=== PATIENT | female | born 1955 | race Caucasian/White ===

== ENCOUNTER 2020-07-08 06:49 | Emergency (ER) | payer BC ==
[~2020-07-08] VITALS: Ht 170.2 cm; Wt 89.4 kg
[~2020-07-08 06:49] MED LIST: ADDERALL 10 MG10 MG PO; BACTRIM DS TAB1 EACH PO; CELEXA 10 MG TA10 M1 PO; ESTRADIOL; GLIPIZIDE 10 MG10 MG PO; GLUCOPHAGE1000 MG PO; IBUPROFEN 800800 M1 PO; MACROBID 100 M100 M1; NEURONTIN600 MG PO; NORCO 5-325 TA1 EACH PO; PAXIL; SINGULAIR 5 MG C5 MG PO; TRAMADOL 50 MG50 MG; VENTOLIN HFA 1818 GM INH; VITAMIN D21250 MC1 PO; VOLTAREN100 GM TOP; ZESTRIL5 MG PO; ZOFRAN ODT4 MG PO; [UNRECOGNIZED DRUG - OTHER]
[2020-07-08 08:56] VITALS: BP 145/91
== END 2020-07-08 08:56 | disposition home or self-care (01) ==
LOC: ER 06:49
DX: S80.12XA Contusion of left lower leg, initial encounter (principal); S80.11XA Contusion of right lower leg, initial encounter; E11.9 Type 2 diabetes mellitus without complications; J45.909 Unspecified asthma, uncomplicated; Z90.710 Acquired absence of both cervix and uterus; Z79.1 Long term (current) use of non-steroidal anti-inflammatories (NSAID); Z79.84 Long term (current) use of oral hypoglycemic drugs; Z79.899 Other long term (current) drug therapy; Z88.2 Allergy status to sulfonamides; V40.5XXA Car driver injured in collision with pedestrian or animal in traffic accident, initial encounter; Y93.89 Activity, other specified; Y92.89 Other specified places as the place of occurrence of the external cause; Y99.8 Other external cause status